=== PATIENT | male | born 1945 | race Caucasian/White ===

== ENCOUNTER 2018-11-18 13:12 | Outpatient (CLI) | payer MEDICARE ==
[~2018-11-18 13:12] MED LIST: ASCO10004 PO; CHOL10003 PO; CYAN1TAB39 PO; GABA300C10 PO; HYDR-3245 PO; IBUP-1223 PO; MULT-642 PO; NIAC100T3 PO; SAW160CA4 PO; TRAM50TA2 PO; TURM500C7 PEG; [UNRECOGNIZED DRUG - OTHER] PO
== END 2018-11-18 23:59 | disposition home or self-care (01) ==
LOC: RAD 13:12
PROVIDERS: ATTEND Urology
DX: C61 Malignant neoplasm of prostate (principal)
CPT/HCPCS: 51600; 74430